=== PATIENT | female | born 1965 | race Caucasian/White ===

== ENCOUNTER → 2016-12-29 | Outpatient (CLI) | payer BC | LOC: COL.RAD 09:44 | DX: M41.86 Other forms of scoliosis, lumbar region (principal); M25.78 Osteophyte, vertebrae ==

== ENCOUNTER 2018-10-31 08:54 | Day surgery (SDC) | payer OTHER ==
[2018-10-31] VITALS (9 sets, daily range): BP systolic 106–141; BP diastolic 61–87; PULSE 63–77; TEMP 97.6–99.4
[~2018-10-31] VITALS: Ht 152.5 cm; Wt 116.0 kg
[2018-10-31 09:55] LABS: HEMATOCRIT 37.2 % (37.0-47.0); HEMOGLOBIN 11.7 g/dl (12.5-16.0); MEAN CELL VOLUME 89 fl (80.0-100.0); MEAN CORPUSCULAR HEMOGLOBIN 28 pg (27.0-31.0); MEAN CORPUSCULAR HGB CONC 32 g/dl (33.0-37.0); PLATELET COUNT 258 K/mm3 (130-400); RED BLOOD COUNT 4.19 M/mm3 (4.10-5.30); REDCELL DISTRIBUTION WIDTH-CV 13.5 % (11.5-14.5)
[2018-10-31] MEDS ORDERED: TENORMIN100 MG PO (09:59)
[2018-10-31] MEDS ORDERED: LASIX 40MG TABL40 MG PO (09:59)
[2018-10-31] MEDS ORDERED: PRINIVIL10 MG PO (10:00)
[2018-10-31] MEDS ORDERED: MOBIC15 MG PO (10:00)
[2018-10-31] MEDS ORDERED: ASPIRIN E.C. 8181 MG PO (10:01)
[2018-10-31] MEDS ORDERED: PERCOCET 325 MG1 TA2 PO (10:01)
[2018-10-31] MEDS ORDERED: LIPITOR20 MG PO (10:02)
[2018-10-31] MEDS ORDERED: NORVASC 5MG5 MG/TAB PO (10:03)
[2018-10-31] MEDS ORDERED: COZAAR100 MG PO (10:03)
[2018-10-31] MEDS ORDERED: NEURONTIN300 MG/CAP PO (10:04)
[2018-10-31] MEDS ORDERED: NITROSTAT0.4 MG/TAB SL (10:04)
[2018-10-31] MEDS ORDERED: CYMBALTA 60MG60 MG PO (10:04)
[2018-10-31 10:09] LABS: CALCIUM 8.5 mg/dL (8.4-10.2); CREATININE, serum 0.67 mg/dL (0.52-1.25); POTASSIUM 4.4 mmol/L (3.4-5.0)
--- NOTE | 2018-10-31 11:34 | NUR ---
ALL SEDATION MEDICATIONS GIVEN DURING PROCEDURE WITH VERBAL ORDER FROM MD LIZ. SEE MERGE FOR ADMIN TIMES. SEE MERGE FOR RASS AND MODERATE SEDATION ASSESSMENTS DURING AND POST PROCEDURE.
--- NOTE | 2018-10-31 12:25 | NUR ---
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 STATES HAVING PAIN TO RIGHT WRIST AREA 6/10. AREA IS SOFT, SLIGHTLY SWOLLEN ABOVE BAND. CALL LIGHT IN REACH. ORDERED MEAL, SIPS ON COFFEE
--- NOTE | 2018-10-31 13:15 | NUR ---
pt eats lunch, no changes noted, area above band remains soft
--- NOTE | 2018-10-31 13:16 | NUR ---
Dr King into see pt and family, pt eats lunch, declined tylenol at this time
--- NOTE | 2018-10-31 14:30 | NUR ---
released band per protocol, 2cc first then 5cc in 10min, no bleeding, area around site remains slightly puffy and soft, unchanged from arrival. pt does c/o "soreness" to site, gauze then tegrederm on. encouraged pt to take tylenol, keep site elevated at home. reviewed discharge inst. with pt on care of site, activity, shower 24 hrs. pt n ot to drive for 48hrs, keep area clean and dry, appt made for 2 weeks on paper for pt, verbal understanding.
--- NOTE | 2018-10-31 15:15 | NUR ---
pt up to b/r, gait steady, no dizziness, iv d'cd intact with pressure to site. pt up in room dressed. discharged via w/c to car with family
== END 2018-10-31 15:15 | disposition home or self-care (01) ==
LOC: COL.CAR 08:54
PROVIDERS: Internal Medicine Cardiovascular Disease
DX: R07.89 Other chest pain (principal); I10 Essential (primary) hypertension; E11.9 Type 2 diabetes mellitus without complications; Z82.49 Family history of ischemic heart disease and other diseases of the circulatory system; Z83.49 Family history of other endocrine, nutritional and metabolic diseases; Z79.82 Long term (current) use of aspirin; Z83.3 Family history of diabetes mellitus; Z88.5 Allergy status to narcotic agent; Z88.1 Allergy status to other antibiotic agents; Z88.8 Allergy status to other drugs, medicaments and biological substances; Z91.011 Allergy to milk products
CPT/HCPCS: J1644; J2250; J3010; Q9967